=== PATIENT | male | born 1960 | race Caucasian/White ===

== ENCOUNTER 2024-01-11 06:24 | Day surgery (SDC) | payer BC, SELFPAY ==
[2024-01-02 10:04] VITALS: BMI 34.3
[2024-01-02 11:40] LABS: Hematocrit 41.1 % (39.0-52.0); Hemoglobin 14.2 g/dL (13.0-18.0); Mean Corp Hgb Conc. 34.5 g/dL (33.0-37.0); Mean Corpuscular Hgb 31.4 pg (27.0-31.0); Mean Corpuscular Volume 90.9 fL (80.0-94.0); Platelet Count 185 10^3/uL (130-400); Red Blood Cell Count 4.52 10^6/uL (4.70-6.10); Red Cell Dist. Width 13.2 % (11.5-14.5); White Blood Cell Count 4.6 10^3/uL (4.8-10.8)
[2024-01-11] VITALS (8 sets, daily range): BP systolic 111–171; BP diastolic 77–98; BMI 34.3
[2024-01-11] MEDS: TYLENOL 1000 MG PO (09:12)
[2024-01-11] MEDS: CELEBREX 200 MG PO (09:12)
== END 2024-01-11 13:56 | disposition home or self-care (01) ==
LOC: SDS 06:24
PROVIDERS: ATTENDING PHYSICIAN Orthopaedic Surgery; FAMILY PHYSICIAN Family Medicine; OTHER PHYSICIAN Internal Medicine Cardiovascular Disease
DX: M75.122 Complete rotator cuff tear or rupture of left shoulder, not specified as traumatic (principal)
CPT/HCPCS: 29827; 29823; 36415; 85027; 93005; C1713

== ENCOUNTER 2024-05-23 06:13 | Day surgery (SDC) | payer BC, SELFPAY ==
[2024-05-16 12:11] LABS: Blood Urea Nitrogen 23 mg/dl (9-20); Calcium 9.3 mg/dl (8.4-10.2); Carbon Dioxide 27 mmol/L (22-30); Chloride 102 mmol/L (98-107); Glucose 89 mg/dl (70-99); Potassium 4.5 mmol/L (3.5-5.1); Sodium 139 mmol/L (135-145); eGFR > 60.00
[2024-05-16 13:44] VITALS: BMI 34.5
[2024-05-23] VITALS (9 sets, daily range): BP systolic 120–159; BP diastolic 79–99; BMI 34.5
[2024-05-23] MEDS: CELEBREX 200 MG PO (07:05)
[2024-05-23] MEDS: NORMOSOL-R/PLASMALYTE-A 1000 IV (07:05)
[2024-05-23] MEDS: TYLENOL 1000 MG PO (07:05)
[2024-05-23] MEDS: MORPHINE SULFATE 2 MG IV (08:52)
== END 2024-05-23 09:55 | disposition home or self-care (01) ==
LOC: SDS 06:13
PROVIDERS: ATTENDING PHYSICIAN Orthopaedic Surgery; FAMILY PHYSICIAN Family Medicine
DX: S83.231A Complex tear of medial meniscus, current injury, right knee, initial encounter (principal); X58.XXXA Exposure to other specified factors, initial encounter; M22.41 Chondromalacia patellae, right knee
CPT/HCPCS: 29881; 36415; 80048; 93005

== ENCOUNTER → 2024-07-25 14:00 | Outpatient (REF) | payer BC, SELFPAY | LOC: DHSLP 14:00 | PROVIDERS: ATTENDING PHYSICIAN Internal Medicine; FAMILY PHYSICIAN Family Medicine | DX: G47.33 Obstructive sleep apnea (adult) (pediatric) (principal) | CPT/HCPCS: 95800 ==

== ENCOUNTER → 2024-12-31 13:25 | Outpatient (REF) | payer BC, SELFPAY | LOC: HWRAD 13:25 | PROVIDERS: ATTENDING PHYSICIAN Nurse Practitioner Adult Health; FAMILY PHYSICIAN Family Medicine | DX: R59.9 Enlarged lymph nodes, unspecified (principal) | CPT/HCPCS: 71250 ==